=== PATIENT | male | born 1975 | race African-American/Black ===

== ENCOUNTER 2018-05-06 22:03 | Emergency (ER) | payer BC ==
[2018-05-06] MEDS ORDERED: ASPIRIN 81 MG CHEWABLE TABLET ONE (22:51)
[2018-05-06] MEDS ORDERED: NA CHLORIDE 0.9% 1,000 ML ONE (22:51)
[2018-05-06 23:02] LABS: Absolute Lymphocytes (CBC) 1.9 K/uL (0.7-4.9); Absolute Monocytes 0.5 K/uL (0.1-1.3); Absolute Neutrophil 2.9 K/uL (1.8-8.0); Basophils % 0.6 % (0-1.3); Eosinophils % 2.8 % (0-4.4); Hematocrit 45.7 % (39.6-49.0); Lymphocytes % 34.6 % (15.3-44.8); MCH 29.5 pg (27.0-35.0); MPV 9.8 fL (7.6-11.3); Monocytes % 9.7 % (3.3-12.3); RBC Red Blood Cell Count 5.13 M/uL (4.33-5.43)
[2018-05-06 23:09] LABS: Protime INR 1.02
[2018-05-06 23:21] LABS: ALT/SGPT 46 U/L (12-78); AST/SGOT 31 U/L (15-37); Albumin 3.7 g/dL (3.4-5.0); Alkaline Phosphatase 53 U/L (45-117); BUN Blood Urea Nitrogen 14 mg/dL (7-18); Bicarbonate 31 mmol/L (21-32); Bilirubin Direct 0.1 mg/dL (0-0.2); Bilirubin Total 0.3 mg/dL (0.2-1.0); Glucose Level 88 mg/dL (74-106); Lipase 140 U/L (73-393); Magnesium 2.6 mg/dL (1.8-2.4); NT PRO-BNP 19 pg/mL (<125); Potassium 3.9 mmol/L (3.5-5.1); Protein, Total 7.4 g/dL (6.4-8.2); Sodium Level 143 mmol/L (136-145); Troponin (Emerg Dept Use Only) < 0.02 ng/mL (0.0-0.045)
[2018-05-06 23:58] LABS: Barbiturates NEGATIVE (NEGATIVE); Benzodiazepines NEGATIVE (NEGATIVE); Cocaine NEGATIVE (NEGATIVE); METHAMPHETAM NEGATIVE (NEGATIVE); Methadone NEGATIVE (NEGATIVE); Opiates NEGATIVE (NEGATIVE); Phencyclidine NEGATIVE (NEGATIVE); THC Cannibis NEGATIVE (NEGATIVE)
[2018-05-07 00:08] LABS: Urine Blood TRACE (NEG); Urine Glucose NEGATIVE (NEG); Urine Protein NEGATIVE (NEG); Urine pH 6.5 (5.0-7.0)
--- NOTE | 2018-05-07 00:29 | ER ---
Nurse's Notes [facility] Name: Dl Corona Age: 43 yrs Sex: Male : 1975 Arrival Date: 05/06/2018 Time: 22:06 Bed 18 Private MD: Diagnosis: Chest pain, unspecified;Palpitations Presentation: 05/06 22:14 Presenting complaint: Patient states: Chest pain for the past two days. Patient ao describes pain as flurrying and palpitations. Patient denies nausea or vomiting. Transition of care: patient was not received from another setting of care. Onset of symptoms was May 04, 2018. Risk Assessment: Do you want to hurt yourself or someone else? Patient reports no desire to harm self or others. Initial Sepsis Screen: Does the patient meet any 2 criteria? No. Patient's initial sepsis screen is negative. Does the patient have a suspected source of infection? No. Patient's initial sepsis screen is negative. Care prior to arrival: None. 22:14 Method Of Arrival: Ambulatory ao 22:14 Acuity: ELVIN 3 ao Triage Assessment: 22:18 General: Appears in no apparent distress. comfortable, Behavior is calm, cooperative, ao appropriate for age. Pain: Complains of pain in chest. Historical: - Allergies: 22:16 No Known Allergies; ao - Home Meds: 22:16 None [Active]; ao - PMHx: 22:16 None; ao - PSHx: 22:16 None; ao - Immunization history:: Adult Immunizations up to date. - Social history:: Smoking status: Patient/guardian denies using tobacco, Patient uses alcohol, occasionally. Patient/guardian denies using street drugs. - Ebola Screening: : Patient negative for fever greater than or equal to 101.5 degrees Fahrenheit, and additional compatible Ebola Virus Disease symptoms Patient denies exposure to infectious person Patient denies travel to an Ebola-affected area in the 21 days before illness onset. - Family history:: not pertinent. Screenin:17 Abuse screen: Denies threats or abuse. Denies injuries from another. Nutritional ao screening: No deficits noted. Tuberculosis screening: No symptoms or risk factors identified. Fall Risk None identified. Assessment: 22:18 Pain: Pain does not radiate. Pain began 2-3 days ago. Cardiovascular: Reports chest ao pain. 22:25 General: Appears in no apparent distress. uncomfortable, Behavior is calm, cooperative, jd3 appropriate for age. Pain: Complains of pain in chest Pain does not radiate. Quality of pain is described as pressure, sharp, Pain began 2-3 days ago. Also complains of shortness of breath. Neuro: Level of Consciousness is awake, alert, obeys commands, Oriented to person, place, time, situation, Appropriate for age. Cardiovascular: Reports chest pain, Heart tones S1 S2 present Capillary refill < 3 seconds Patient's skin is warm and dry. Rhythm is sinus rhythm. Respiratory: Reports shortness when pain gets bad. Airway is patent Respiratory effort is even, unlabored, Respiratory pattern is regular, symmetrical, Breath sounds are clear bilaterally. GI: No signs and/or symptoms were reported involving the gastrointestinal system. : No signs and/or symptoms were reported regarding the genitourinary system. EENT: No signs and/or symptoms were reported regarding the EENT system. Derm: Skin is intact, Skin is dry, Skin is normal, Skin temperature is warm. Musculoskeletal: Circulation, motion, and sensation intact. Range of motion: intact in all extremities. 23:07 Reassessment: Patient appears in no apparent distress at this time. No changes from jd3 previously documented assessment. Patient and/or family updated on plan of care and expected duration. Pain level reassessed. Patient is alert, oriented x 3, equal unlabored respirations, skin warm/dry/pink. 23:47 Reassessment: Patient appears in no apparent distress at this time. No changes from jd3 previously documented assessment. Patient and/or family updated on plan of care and expected duration. Pain level reassessed. Patient is alert, oriented x 3, equal unlabored respirations, skin warm/dry/pink. 05/07 00:37 Reassessment: Patient appears in no apparent distress at this time. Patient and/or jd3 family updated on plan of care and expected duration. Pain level reassessed. Patient is alert, oriented x 3, equal unlabored respirations, skin warm/dry/pink. reported understanding of discharge instructions, even and steady gait upon discharge. Vital Signs: 05/06 22:16 BP 138 / 81; Pulse 81; Resp 18; Temp 98.2(O); Pulse Ox 99% on R/A; Weight 122.47 kg ao (R); Height 5 ft. 9 in. (175.26 cm) (R); Pain /10; 23:06 BP 117 / 59; Pulse 73; Resp 19 S; Pulse Ox 98% on R/A; jd3 23:46 BP 120 / 58; Pulse 70; Resp 17 S; Pulse Ox 99% on R/A; jd3 05/07 00:37 BP 127 / 77; Pulse 76; Resp 16 S; Pulse Ox 100% on R/A; jd3 05/06 22:16 Body Mass Index 39.87 (122.47 kg, 175.26 cm) ao ED Course: 05/06 22:06 Patient arrived in ED. es 22:12 Giovanni Hart, RN is Primary Nurse. jd3 22:16 Triage completed. ao 22:17 Arm band placed on right wrist. Patient placed in an exam room, on a stretcher, on ao surveillance system monitor, on pulse oximetry, Patient notified of wait time. 22:17 Patient has correct armband on for positive identification. conveyor monitor on. Pulse ao ox on. NIBP on. 22:18 Patient maintains SpO2 saturation greater than 95% on room air. ao 22:24 Mitchell Meyer MD is Attending Physician. katalina 22:24 EKG done, by ED staff, reviewed by Mitchell Meyer MD. jd3 22:42 XRAY Chest (1 view) In Process Unspecified. EDMS 22:58 Inserted saline lock: 20 gauge in left antecubital area, using aseptic technique. Blood oe collected. 23:38 Troponin (emerg Dept Use Only) Sent. jd3 23:46 UDS Sent. jd3 05/07 00:27 Rashaun Henriquez MD is Referral Physician. katalina 00:38 No provider procedures requiring assistance completed. IV discontinued, intact, jd3 bleeding controlled, No redness/swelling at site. Pressure dressing applied. Administered Medications: 05/06 22:47 Drug: Aspirin Chewable Tablet 324 mg Route: PO; jd3 23:17 Follow up: Response: No adverse reaction jd3 22:54 Drug: NS 0.9% 1000 ml Route: IV; Rate: 125 ml/hr; Site: left antecubital; jd3 05/07 00:38 Follow up: Response: No adverse reaction; IV Status: Order to discontinue infusion jd3 Outcome: 00:27 Discharge ordered by . katalina 00:38 Discharged to home ambulatory, with family. jd3 00:38 Condition: stable 00:38 Discharge instructions given to patient, Instructed on discharge instructions, follow up and referral plans. medication usage, Demonstrated understanding of instructions, follow-up care, medications, Prescriptions given X 1. 00:39 Patient left the ED. jd3 Signatures: Dispatcher [employer] EDMitchell Elizondo MD MD cha Salyer, Juan Casanova, RN RN Richardson Ghotra Jonathon, HARSHAL RN jd3
--- NOTE | 2018-05-07 00:29 | EDPHYS ---
Physician Documentation [facility] Name: Dl Corona Age: 43 yrs Sex: Male : 1975 Arrival Date: 05/06/2018 Time: 22:06 Bed 18 Private MD: ED Physician Mitchell Meyer HPI: 05/06 22:30 This 43 yrs old Black Male presents to ER via Ambulatory with complaints of Chest Pain. katalina 22:30 The patient or guardian reports chest pain that is located primarily in the substernal katalina area. Onset: 3 day(s) ago. The pain does not radiate. Associated signs and symptoms: The patient has no apparent associated signs or symptoms. The chest pain is described as palpitations. Severity of pain: At its worst the pain was very mild. Historical: - Allergies: 22:16 No Known Allergies; ao - Home Meds: 22:16 None [Active]; ao - PMHx: 22:16 None; ao - PSHx: 22:16 None; ao - Immunization history:: Adult Immunizations up to date. - Social history:: Smoking status: Patient/guardian denies using tobacco, Patient uses alcohol, occasionally. Patient/guardian denies using street drugs. - Ebola Screening: : Patient negative for fever greater than or equal to 101.5 degrees Fahrenheit, and additional compatible Ebola Virus Disease symptoms Patient denies exposure to infectious person Patient denies travel to an Ebola-affected area in the 21 days before illness onset. - Family history:: not pertinent. ROS: 22:30 Constitutional: Negative for fever, chills, and weight loss, Eyes: Negative for injury, katalina pain, redness, and discharge, ENT: Negative for injury, pain, and discharge, Neck: Negative for injury, pain, and swelling, Respiratory: Negative for shortness of breath, cough, wheezing, and pleuritic chest pain, Abdomen/GI: Negative for abdominal pain, nausea, vomiting, diarrhea, and constipation, Back: Negative for injury and pain, : Negative for injury, bleeding, discharge, and swelling, MS/Extremity: Negative for injury and deformity, Skin: Negative for injury, rash, and discoloration, Neuro: Negative for headache, weakness, numbness, tingling, and seizure, Psych: Negative for depression, anxiety, suicide ideation, homicidal ideation, and hallucinations, Allergy/Immunology: Negative for hives, rash, and allergies, Endocrine: Negative for neck swelling, polydipsia, polyuria, polyphagia, and marked weight changes, Hematologic/Lymphatic: Negative for swollen nodes, abnormal bleeding, and unusual bruising. 22:30 Cardiovascular: Positive for palpitations. Exam: 22:30 Constitutional: This is a well developed, well nourished patient who is awake, alert, katalina and in no acute distress. Head/Face: Normocephalic, atraumatic. Eyes: Pupils equal round and reactive to light, extra-ocular motions intact. Lids and lashes normal. Conjunctiva and sclera are non-icteric and not injected. Cornea within normal limits. Periorbital areas with no swelling, redness, or edema. ENT: Nares patent. No nasal discharge, no septal abnormalities noted. Tympanic membranes are normal and external auditory canals are clear. Oropharynx with no redness, swelling, or masses, exudates, or evidence of obstruction, uvula midline. Mucous membranes moist. Neck: Trachea midline, no thyromegaly or masses palpated, and no cervical lymphadenopathy. Supple, full range of motion without nuchal rigidity, or vertebral point tenderness. No Meningismus. Chest/axilla: Normal chest wall appearance and motion. Nontender with no deformity. No lesions are appreciated. Cardiovascular: Regular rate and rhythm with a normal S1 and S2. No gallops, murmurs, or rubs. Normal PMI, no JVD. No pulse deficits. Respiratory: Lungs have equal breath sounds bilaterally, clear to auscultation and percussion. No rales, rhonchi or wheezes noted. No increased work of breathing, no retractions or nasal flaring. Abdomen/GI: Soft, non-tender, with normal bowel sounds. No distension or tympany. No guarding or rebound. No evidence of tenderness throughout. Back: No spinal tenderness. No costovertebral tenderness. Full range of motion. Male : Normal genitalia with no discharge or lesions. Skin: Warm, dry with normal turgor. Normal color with no rashes, no lesions, and no evidence of cellulitis. MS/ Extremity: Pulses equal, no cyanosis. Neurovascular intact. Full, normal range of motion. Neuro: Awake and alert, GCS 15, oriented to person, place, time, and situation. Cranial nerves II-XII grossly intact. Motor strength 5/5 in all extremities. Sensory grossly intact. Cerebellar exam normal. Normal gait. Psych: Awake, alert, with orientation to person, place and time. Behavior, mood, and affect are within normal limits. 22:30 Musculoskeletal/extremity: DVT Exam: No signs of deep vein thrombosis. no pain, no swelling, no tenderness, negative Homans' sign noted on exam, no appreciated bluish discoloration, no erythema, no increased warmth. Vital Signs: 22:16 BP 138 / 81; Pulse 81; Resp 18; Temp 98.2(O); Pulse Ox 99% on R/A; Weight 122.47 kg ao (R); Height 5 ft. 9 in. (175.26 cm) (R); Pain 5/10; 23:06 BP 117 / 59; Pulse 73; Resp 19 S; Pulse Ox 98% on R/A; jd3 23:46 BP 120 / 58; Pulse 70; Resp 17 S; Pulse Ox 99% on R/A; jd3 05/07 00:37 BP 127 / 77; Pulse 76; Resp 16 S; Pulse Ox 100% on R/A; jd3 05/06 22:16 Body Mass Index 39.87 (122.47 kg, 175.26 cm) ao MDM: 05/06 22:24 Patient medically screened. [facility] 22:32 Data reviewed: vital signs, nurses notes, lab test result(s), EKG, radiologic studies, katalina plain films. 05/06 22:25 Order name: Basic Metabolic Panel; Complete Time: 23:40 [facility] 05/06 22:25 Order name: CBC with Diff; Complete Time: 23:40 [facility] 05/06 22:25 Order name: LFT's; Complete Time: 23:40 [facility] 05/06 22:25 Order name: Magnesium; Complete Time: 23:40 [facility] 05/06 22:25 Order name: NT PRO-BNP; Complete Time: 23:40 [facility] 05/06 22:25 Order name: PT-INR; Complete Time: 23:40 [facility] 05/06 22:25 Order name: Troponin (emerg Dept Use Only); Complete Time: 23:40 [facility] 05/06 22:25 Order name: XRAY Chest (1 view) [facility] 05/06 22:25 Order name: Lipase; Complete Time: 23:40 [facility] 05/06 22:25 Order name: Urine Culture [facility] 05/06 22:29 Order name: TSH; Complete Time: 00:08 [facility] 05/06 22:30 Order name: UDS; Complete Time: 00:08 [facility] 05/06 23:12 Order name: Troponin (emerg Dept Use Only); Complete Time: 00:27 [facility] 05/06 23:47 Order name: Urine Dipstick--Ancillary (enter results); Complete Time: 00:11 [place] 05/06 22:24 Order name: EKG; Complete Time: 22:25 [facility] 05/06 22:24 Order name: EKG - Nurse/Tech; Complete Time: 22:24 [facility] 05/06 22:25 Order name: Cardiac monitoring; Complete Time: 22:28 [facility] 05/06 22:25 Order name: EKG - Nurse/Tech; Complete Time: 22:28 [facility] 05/06 22:25 Order name: IV Saline Lock; Complete Time: 22:55 [facility] 05/06 22:25 Order name: Labs collected and sent; Complete Time: 22:55 [facility] 05/06 22:25 Order name: O2 Per Protocol; Complete Time: 22:28 [facility] 05/06 22:25 Order name: O2 Sat Monitoring; Complete Time: 22:28 [facility] 05/06 22:25 Order name: Urine Dipstick-Ancillary (obtain specimen); Complete Time: 23:46 [facility] 05/06 23:12 Order name: Repeat Cardiac Enzymes at: 1130pm; Complete Time: 23:38 [facility] Administered Medications: 22:47 Drug: Aspirin Chewable Tablet 324 mg Route: PO; j 23:17 Follow up: Response: No adverse reaction j 22:54 Drug: NS 0.9% 1000 ml Route: IV; Rate: 125 ml/hr; Site: left antecubital; [facility] 05/07 00:38 Follow up: Response: No adverse reaction; IV Status: Order to discontinue infusion jd3 Disposition: 05/07/18 00:27 Discharged to Home. Impression: Chest pain, unspecified, Palpitations. - Condition is Stable. - Discharge Instructions: Nonspecific Chest Pain, Palpitations, Nonspecific Chest Pain, [id number], Aspirin and Your Heart, Palpitations, [id number]. - Prescriptions for Toprol XL 25 mg Oral Tablet - take 1 tablet by ORAL route once daily; 20 tablet. - Medication Reconciliation Form, Thank You Letter, Antibiotic Education, Prescription Opioid Use form. - Follow up: Private Physician; When: 2 - 3 days; Reason: Recheck today's complaints, Continuance of care, Re-evaluation by your physician. Follow up: Rashaun Henriquez; When: 2 - 3 days; Reason: Recheck today's complaints, Re-evaluation by your physician. - Problem is new. - Symptoms have improved. Signatures: Dispatcher [employer] EDDE Mitchell Meyer MD MD cha Ortiz, Alex RN Giovanni Malik RN RN jd3 Corrections: (The following items were deleted from the chart) 00:39 00:27 05/07/2018 00:27 Discharged to Home. Impression: Chest pain, unspecified; jd3 Palpitations. Condition is Stable. Discharge Instructions: Nonspecific Chest Pain, Palpitations, Nonspecific Chest Pain, [id number], Aspirin and Your Heart, Palpitations, [id number]. Prescriptions for Toprol XL 25 mg Oral Tablet - take 1 tablet by ORAL route once daily; 20 tablet. and Forms are Medication Reconciliation Form, Thank You Letter, Antibiotic Education, Prescription Opioid Use. Follow up: Private Physician; When: 2 - 3 days; Reason: Recheck today's complaints, Continuance of care, Re-evaluation by your physician. Follow up: Rashaun Henriquez; When: 2 - 3 days; Reason: Recheck today's complaints, Re-evaluation by your physician. Problem is new. Symptoms have improved. katalina
--- NOTE | 2018-05-07 08:13 | RAD REPORT ---
EXAM DESCRIPTION: Jn Single View05/06/2018 10:42 pm CLINICAL HISTORY: Chest pain COMPARISON: none FINDINGS: The lungs appear clear of acute infiltrate. The heart is normal size IMPRESSION: No acute abnormalities displayed
--- NOTE | 2018-05-07 09:08 | EKG ---
Test Date: 2018-05-06 Test Time: 22:17:19 Mine Wirer: CARSON MEASUREMENT RESULTS: Intervals: Rate: 75 PA: 176 QRSD: 88 QT: 374 QTc: 417 [place]: P: 38 PA: 176 QRS: 71 T: 10 INTERPRETIVE STATEMENTS: Normal sinus rhythm Normal ECG No previous ECG available for comparison Electronically Signed On 05-07-18 09:07:07 CDT by Fan Smith
== END 2018-05-07 00:39 | disposition home or self-care (01) ==
LOC: ER 22:03
DX: R00.2 Palpitations (principal)
CPT/HCPCS: 36415; 71045; 80048; 80076; 80307; 81003; 83690; 83735; 83880; 84443; 84484; 85025; 85610; 87086; 87088; 93005; 96360; 96361; 99285; J7030